=== PATIENT | female | born 1940 | race Caucasian/White ===

== ENCOUNTER 2024-07-04 20:07 | Emergency (ER) | payer MEDICARE, BC, SELFPAY ==
[2024-07-04 20:09] VITALS: BP 154/78
[2024-07-04 21:58] VITALS: BMI 28.1
--- NOTE | 2024-07-04 22:15 | ED.GENMED ---
History of Present Illness
General
Chief Complaint: Skin Problem
Source: patient and family
Exam Limitations: none
Time Seen by Provider: 07/04/24 22:01
Nursing documentation reviewed up to this point in time: agreed with
History of Present Illness
History of Present Illness:
84-year-old female wound on her right foot after being bitten details are unclear perhaps bitten by an insect some redness some drainage main complaint is itchiness, dog was licking the wound made it feel better been on doxycycline, for a few days,
telehealth with PCP referred to the ER denies fever states she does not get much pain in her foot due to neuropathy from chemotherapy, not known to be diabetic
Past History
Past History
ED Past Medical History: Cancer; Negative NIDDM
Social History
Tobacco: Non-smoker
Alcohol: None
Drug: None
Personal:
Living: with family
Employment: Retired
Review of Systems
Review of Systems
All Other Systems: Not applicable
Constitutional: Denies fever or fatigue
EENT: Reports no symptoms
Respiratory: Reports no symptoms
Cardiac: Reports no symptoms
ABD/GI: Reports no symptoms
Musculoskeletal: Reports edema
Skin: Reports itching and rash
Phy Exam
Physical Exam
Physical Exam:
Physical Exam
General: no apparent distress, not acutely ill
Neck: Right
Heart: s1/s2 regular rate and rhythm, no murmur. equal radial pulses.
Lungs: no acute respiratory distress. clear bilaterally
Neuro: alert and oriented. no focal neurological deficits
Skin: Warm and dry
Psychiatric: well kept. interactive and cooperative
Extremities: Dorsum of the right foot 3 cm area of erythema with dry eschar no fluctuance no pus minimal warmth
Course
Orders/Labs/Results
Orders:
Orders
07/04/24 22:11
Foot, Right 3 View [CR Foot - Right Min 3 Views] Urgent
Comment:
Reason For Exam: swelling
07/04/24 22:12
Add On- LAB Urgent
Tests Added?: esr/crp
07/04/24 22:15
Diphenhydramine [Benadryl] 25 mg IV NOW STA
07/04/24 22:18
C-Reactive Protein Urgent
Comment: ADD ON
Complete Blood Count/With Diff Urgent
Comprehensive Metabolic Panel Urgent
Erythrocyte Sed Rate Urgent
Comment: ADD ON
07/04/24 22:23
CeFAZolin 1 GRAM [Ancef] 1 gram in 5 ml IV NOW
Abnormal Lab Results
07/04/24
22:18
WBC 11.3 H 10^3/uL
(4.8-10.8)
RBC 4.18 L 10^6/uL
(4.20-5.40)
Hgb 11.5 L g/dL
(12.0-16.0)
Hct 35.6 L %
(37.0-47.0)
MCHC 32.3 L g/dL
(33.0-37.0)
Absolute Lymphs (auto) 7.0 H 10^3/uL
(1.2-3.4)
Absolute Monos (auto) 0.8 H 10^3/uL
(0.1-0.6)
Neutrophils % 27.7 L %
(42.2-75.2)
Lymphocytes % 61.7 H %
(20.5-51.1)
Chloride 109 H mmol/L
(98-107)
BUN 25 H mg/dl
(7-17)
Total Protein 6.1 L g/dl
(6.3-8.2)
07/04/24 22:18
07/04/24 22:18
Vital Signs
Initial and Last Documented VS:
Initial Vital Signs
Temp Pulse Resp BP Pulse Ox
98.2 F 66 24 154/78 98
07/04/24 20:09 07/04/24 20:09 07/04/24 20:09 07/04/24 20:09 07/04/24 20:09
Last Documented Vital Signs
Temp Pulse Resp BP Pulse Ox
99.4 F 57 24 164/70 95
07/04/24 22:17 07/04/24 22:17 07/04/24 20:09 07/04/24 23:39 07/04/24 23:41
MDM/Problems Addressed
Differential Diagnosis Includes:
Dermatitis, allergic reaction cellulitis doubt bony infection
MDM/Problems Addressed:
Swollen foot
Chronic conditions affecting care:
Neuropathy
Acute Exacerbation and/or Progression of Chronic Illness:
Neuropathy
*Radiology
Radiology exam reviewed: preliminary read by ED provider
*Pulse Oximetry
Patient hypoxic: no
*Critical Care Note
Total Time (30-74mins, 75-104mins- exclusive of procedures): Not Applicable
Update Note
Update Note:
Looks to be more of a dermatitis than a cellulitis although both is possible we will switch to Ancef,
Labs noted x-ray noted patient feeling better wound looks a bit better to me after some Benadryl start on topicals, switch to Keflex PCP follow-up reviewed with family
ED Attending Note
-
Portions of this chart may have been created with voice recognition software.� Occasional wrong word or��sound alike� substitutions may have occurred due to the inherent limitations of voice recognition software.
Discharge Plan
Departure
Patient Disposition: Home (Routine Discharge)
Date of Disposition: 07/04/24
Time of Disposition: 23:55
Patient with high blood pressure during this ER visit?: No
Condition: Good
Discharge Problem:
Cellulitis, Dermatitis
Instructions: Skin Rash (DC), Cellulitis (Skin Infection), Adult (DC)
Prescriptions:
New
cephalexin 500 mg capsule
500 mg PO Q8H 7 Days Qty: 21 0RF
hydrocortisone [Anti-Itch (HC)] 1 % lotion
1 applic topical BID PRN (Reason: itching) Qty: 120 0RF
Triple Antibiotic 3.5mg-400 unit- 5,000 unit/gram ointment
1 applic topical BID Qty: 9.35 0RF
Referrals:
Gm Toledo MD [Family Provider] - Follow up in 2-3 days
Activity Restrictions/Additional Instructions:
Continue your current antibiotic add Keflex 3 times a day
Use steroid cream twice a day for itching
Use antibiotic cream 2 times a day
Return to the ER for worsening symptoms
Interventions
Interventions:
*Risk Screen - Suicide Last Done: 07/04/24 20:09
*General Assessment Last Done: 07/04/24 21:58
*Neglect/Abuse Screening Last Done: 07/04/24 20:09
*ED COVID-19 Vaccine History Last Done: 07/04/24 21:58
ED-Skin Assessment Last Done: 07/04/24 21:58
Discharge Date and Time
Print Language: FRENCH
[2024-07-04 22:17] VITALS: BP 180/85
[2024-07-04] MEDS: BENADRYL 25 MG IV (22:32)
[2024-07-04] MEDS: ANCEF 5 IV (22:32)
[2024-07-04 22:44] LABS: ALT (SGPT) 16 U/L (0-35); AST (SGOT) 29 U/L (14-36); Albumin 3.8 g/dl (3.5-5.0); Alkaline Phosphatase 97 U/L (38-126); Blood Urea Nitrogen 25 mg/dl (7-17); Calcium 10.2 mg/dl (8.4-10.2); Carbon Dioxide 29 mmol/L (22-30); Chloride 109 mmol/L (98-107); Estimated Creatinine Clearance 63 ml/min; Glucose 90 mg/dl (70-99); Potassium 4.3 mmol/L (3.5-5.1); Sodium 143 mmol/L (135-145); Total Bilirubin 0.4 mg/dl (0.2-1.3); Total Protein 6.1 g/dl (6.3-8.2); eGFR > 60.00
[2024-07-04 23:00] VITALS: BP 160/71
[2024-07-04 23:01] LABS: C-Reactive Protein < 5.00 mg/L (0.0-10.00)
[2024-07-04 23:02] LABS: % Basophils 0.6 % (0-2); % Eosinophils 3.2 % (0-6); % Immature Granulocytes 0.2 % (0-0.5); % Lymphocytes 61.7 % (20.5-51.1); % Monocytes 6.6 % (1.7-9.3); % Neutrophils 27.7 % (42.2-75.2); Absolute Basophils 0.1 10^3/uL (0-0.2); Absolute Eosinophils 0.4 10^3/uL (0-0.7); Absolute Monocytes 0.8 10^3/uL (0.1-0.6); Absolute Neutrophils 3.1 10^3/uL (1.4-6.5); Hematocrit 35.6 % (37.0-47.0); Hemoglobin 11.5 g/dL (12.0-16.0); Mean Corp Hgb Conc. 32.3 g/dL (33.0-37.0); Mean Corpuscular Hgb 27.5 pg (27.0-31.0); Mean Corpuscular Volume 85.2 fL (81.0-99.0); Mean Platelet Volume 10.4 fL (7.4-10.4); Nucleated Red Blood Cells % 0 %; Platelet Count 173 10^3/uL (130-400); Red Blood Cell Count 4.18 10^6/uL (4.20-5.40); Red Cell Dist. Width 14.1 % (11.5-14.5); White Blood Cell Count 11.3 10^3/uL (4.8-10.8)
[2024-07-04 23:11] LABS: Erythrocyte Sed Rate 11 mm/hour (0-20)
[2024-07-04 23:39] VITALS: BP 164/70
== END 2024-07-05 00:16 | disposition home or self-care (01) ==
LOC: EMR 20:07
PROVIDERS: Emergency Medicine; EMERGENCY PHYSICIAN Emergency Medicine; FAMILY PHYSICIAN Internal Medicine
DX: L30.9 Dermatitis, unspecified (principal); L03.115 Cellulitis of right lower limb; G62.9 Polyneuropathy, unspecified
CPT/HCPCS: 99284; 96374; 96375; 73630; 80053; 85025; 85652; 86140

== ENCOUNTER 2024-07-17 12:45 | Emergency (ER) | payer MEDICARE, BC, SELFPAY ==
[2024-07-17 12:48] VITALS: BP 159/83
--- NOTE | 2024-07-17 19:48 | ED.MUSCINJ ---
HPI-Injury
General
Chief Complaint: Musculo-Skeletal Complaint
Source: patient
Exam Limitations: none
Time Seen by Provider: 07/17/24 13:53
Nursing documentation reviewed up to this point in time: agreed with
History of Present Illness-Injury
Is this injury a work related problem?: No
Is pt an associate of [facility]/[place]?: No
Initial Injury comments:
Patient states she lost her footing and fell. Denies hitting her head. No LOC. COmplains of pain to left posterior elbow. Injury occurred yesterday. Brought self to ED for eval.
Past History
Past History
ED Past Medical History: Cancer; Negative NIDDM
Social History
Tobacco: Non-smoker
Alcohol: None
Drug: None
Personal:
Living: with family
Employment: Retired
Review of Systems
Review of Systems
Allergies reviewed?: Yes
All Other Systems: ROS reviewed and negative except as documented in HPI and ROS
Constitutional: Reports no symptoms
Musculoskeletal: Reports joint pain (pain to left posterior elbow)
Skin: Reports other (abrasion left posterior elbow)
Neurological: Reports no symptoms
Psychiatric: Reports no symptoms
Musculoskeletal Injury Exam
Musculoskeletal Injury Exam
Left Posterior Elbow:
Pain with Movement?: Moderate
Tender to palpation?: Moderate
Soft tissue swelling?: Mild
External deformity and angulation?: None
Joint effusion?: None
Contusion?: Moderate
Hematoma-local bleeding into tissue?: Mild
Strain- Sprain- Tear (Connective tissue injury)?: None
Crepitus with movement?: No
Joint instability?: No
Malalignment/deformity?: No
Range of motion: Full
Distal skin color and temperature: normal-warm & good color
Capillary Refill: normal
Normal distal neurovascular exam?: Yes
Phy Exam
General Physical Exam
General Presentation: well appearing and no apparent distress
General age: appears stated age
General Skin: warm and dry
General Habitus: normal
Musculoskeletal Exam
Musculoskeletal Exam: full ROM, neuro vasc intact and other (No pain to shoulder, wrist. Full ROM to BUE, BLE)
Skin Exam
Skin Exam: normal color, warm/dry, no rash and other (superficial abrasion to left posterior elbow)
Psychiatric Exam
Psychiatric Exam: normal mood/affect
Injury Course
Orders/Labs/Results
Orders:
Orders
07/17/24 12:51
Elbow, 3 view, Left [CR Elbow - Left Min 3 Views ] Urgent
Comment:
Reason For Exam: pain injury
*Critical Care Note
Total Time (30-74mins, 75-104mins- exclusive of procedures): Not Applicable
ED Attending Note
-
Portions of this chart may have been created with voice recognition software.� Occasional wrong word or��sound alike� substitutions may have occurred due to the inherent limitations of voice recognition software.
Discharge Plan
Departure
Patient Disposition: Home (Routine Discharge)
Date of Disposition: 07/17/24
Time of Disposition: 14:12
Patient with high blood pressure during this ER visit?: No
Condition: Good
Covid-19: Not Applicable
Discharge Problem:
Contusion of elbow
Instructions: Contusion (DC), Using Cold for Pain
Prescriptions:
No Action
cephalexin 500 mg capsule
500 mg PO Q8H 7 Days Qty: 21 0RF
hydrocortisone [Anti-Itch (HC)] 1 % lotion
1 applic topical BID PRN (Reason: itching) Qty: 120 0RF
Triple Antibiotic 3.5mg-400 unit- 5,000 unit/gram ointment
1 applic topical BID Qty: 9.35 0RF
Referrals:
Gm Toledo MD [Family Provider] -
Interventions
Interventions:
*Risk Screen - Suicide Last Done: 07/17/24 14:25
*General Assessment Last Done: 07/17/24 14:25
*Neglect/Abuse Screening Last Done: 07/17/24 14:25
ED- Fall Risk Assessment Last Done: 07/17/24 14:25
*ED COVID-19 Vaccine History Last Done: 07/17/24 14:25
*Nursing Disposition Last Done: 07/17/24 14:25
ED-Musculoskeletal Assessment Last Done: 07/17/24 14:25
Discharge Date and Time
Discharge Date/Time: 07/17/24 14:25
Print Language: [place]
== END 2024-07-17 14:25 | disposition home or self-care (01) ==
LOC: EMR 12:45
PROVIDERS: EMERGENCY PHYSICIAN Student in an Organized Health Care Education/Training Program; FAMILY PHYSICIAN Internal Medicine
DX: S50.02XA Contusion of left elbow, initial encounter (principal); S50.312A Abrasion of left elbow, initial encounter; W19.XXXA Unspecified fall, initial encounter
CPT/HCPCS: 99283; 73080